=== PATIENT | male | born 1990 | race Caucasian/White ===

== ENCOUNTER 2022-01-24 13:50 | Outpatient (CLI) | payer SELFPAY | END 2022-01-24 13:51 | disposition critical access hospital (66) | LOC: EMS 13:50 | DX: R00.0 Tachycardia, unspecified (principal); R03.0 Elevated blood-pressure reading, without diagnosis of hypertension; F41.9 Anxiety disorder, unspecified | CPT/HCPCS: A0425; A0429 ==

== ENCOUNTER 2022-01-24 14:13 | Emergency (ER) | payer SELFPAY ==
[2022-01-24 14:24] VITALS: BP 192/113
[2022-01-24] MEDS ORDERED: SODIUM CHLORIDE 0.9% 1,000 ML IV STA (14:27)
[2022-01-24] MEDS ORDERED: LORazepam 2 MG/ML VIAL IVP STA (14:27)
[2022-01-24] MEDS ORDERED: METOPROLOL TARTRATE 50 MG TABLET PO STA (14:28)
--- NOTE | 2022-01-24 14:32 | ED Physician Documentation ---
History of Present Illness - Stated complaint Stated Complaint: HEART RACING - Chief complaint Chief Complaint: Cardiac - History obtained from History obtained from: Patient - Additonal information Additional information: The patient comes to the emergency department with chief complaint of heart racing. He states that he drinks fairly heavily every evening and normally, this includes a sixpack of beer plus some other hard alcohol. He states he knows he should stop but he has yet does not want to. He states that normally he does not feel hung over but today he did. He states That he also smoked a lot of weed this morning and drank an energy drink. He drove all the way to [place] and then back when he got back, He felt as though his heart was racing. He called EMS and they found that his blood pressure was high. Patient states he has never been diagnosed with high blood pressure before and that he is pretty healthy, other than the regular heavy alcohol use marijuana use. He denies any chest pain or shortness of breath. He states he felt a little lightheaded. No other complaints at this time. The medics noted that the patient's heart rate ranged between normal and 140s in route. The patient reports currently that he feels much better than he did earlier. Review of Systems Ten Systems: 10 systems reviewed and negative Constitutional: reports: Reviewed and negative Eyes: reports: Reviewed and negative Ears: reports: Reviewed and negative Nose: reports: Reviewed and negative Throat: reports: Reviewed and negative Cardiac: reports: Palpitations Respiratory: reports: Reviewed and negative GI: reports: Reviewed and negative : reports: Reviewed and negative Skin: reports: Reviewed and negative Musculoskeletal: reports: Reviewed and negative Neurologic: reports: Reviewed and negative Psychiatric: reports: Reviewed and negative Endocrine: reports: Reviewed and negative Immunocompromised: reports: Reviewed and negative PD PAST MEDICAL HISTORY - Present Medications Home Medications: Ambulatory Orders Medication Instructions Recorded Confirmed Metoprolol Succinate [Toprol Xl] 25 mg PO DAILY #30 tablet 01/24/22 - Allergies Allergies/Adverse Reactions: Allergies Allergy/AdvReac Type Severity Reaction Status Date / Time No Known Drug Allergies Allergy Verified 01/24/22 14:21 PD ED PE NORMAL - Vitals Vital signs reviewed: Yes - General General: Alert and oriented X 3, No acute distress, Well developed/nourished - HEENT HEENT: Atraumatic, PERRL, EOMI, Moist mucous membranes - Neck Neck: Supple, no meningeal sign, No bony TTP - Cardiac Cardiac: RRR, No murmur, Strong equal pulses - Respiratory Respiratory: No respiratory distress, Clear bilaterally - Abdomen Abdomen: Soft, Non tender, Non distended - Derm Derm: Normal color, Warm and dry, No rash - Extremities Extremities: No deformity, No edema - Neuro Neuro: Alert and oriented X 3, 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, Normal speech - Psych Psych: Normal mood, Normal affect Results - Vitals Vitals: Vital Signs - 24 hr 01/24/22 14:21 Temperature 37.6 C Heart Rate 106 H Respiratory 19 Rate Blood Pressure 192/113 H O2 Saturation 100 Oxygen O2 Source Room air - Labs Labs: Laboratory Tests 01/24/22 01/24/22 14:39 14:39 WBC 9.2 RBC 4.87 Hgb 15.7 Hct 45.3 MCV 93.0 MCH 32.2 H MCHC 34.7 RDW 12.1 Plt Count 228 MPV 10.5 Neut # (Auto) 5.5 Lymph # (Auto) 2.8 [place] # (Auto) 0.6 Eos # (Auto) 0.1 Baso # (Auto) 0.1 Absolute Nucleated RBC 0.00 Nucleated RBC % 0.0 Sodium 140 Potassium 3.8 Chloride 105 Carbon Dioxide 23 Anion Gap 12.0 BUN 16 Creatinine 0.8 Estimated GFR (MDRD) 114 Glucose 116 H Calcium 9.3 Total Bilirubin 0.6 AST 27 ALT 42 Alkaline Phosphatase 63 Total Protein 7.6 Albumin 4.2 Globulin 3.4 Albumin/Globulin Ratio 1.2 Lipase 59 H PD MEDICAL DECISION MAKING - ED course Complexity details: reviewed results, re-evaluated patient, considered differential, d/w patient ED course: The patient's work-up was unremarkable, including EKG and labs. He was treated with IV fluids, Ativan, and metoprolol, with mild improvement in his blood pressure. The patient is not having symptomatic hypertension at this point, but I did advise him that he does need to get his blood pressure under control. I have prescribed metoprolol and advised the patient that he needs to see his primary doctor soon as possible regarding this. The patient also needs to address his substance abuse issues and have advised him to start cutting back with the goal of completely quitting use of both alcohol and marijuana. We discussed the usual indications for return. Departure - Departure Disposition: 01 Home, Self Care Clinical Impression: Palpitations with regular cardiac rhythm Condition: Stable Instructions: ED Hypertension Poss, ED Palpitations, ED Alcohol Abuse Prescriptions: Metoprolol Succinate [Toprol Xl] 25 mg PO DAILY #30 tablet Comments: You had a mildly elevated heart rate here and a significantly elevated blood pressure. You have been provided with a prescription for medication for your blood pressure, but it is very important that you follow-up with your primary doctor to determine whether this is a good long-term plan for you. Please consider decreasing your use of marijuana and alcohol or quitting. Please also continue your weight loss plan. Make the next available appointment with your primary doctor to follow-up on this emergency department visit. Your labs and EKG look good today and there is no evidence of emergent condition at this time.
[2022-01-24 14:45] LABS: BASOPHILS # (AUTO) 0.1 10^3/uL (0.0-0.1); BASOPHILS % (AUTO) 0.7 %; EOSINOPHILS # (AUTO) 0.1 10^3/uL (0.0-0.7); EOSINOPHILS % (AUTO) 1.4 %; HCT - HEMATOCRIT 45.3 % (42.0-52.0); HGB - HEMOGLOBIN 15.7 g/dL (14.0-18.0); LYMPHOCYTES # (AUTO) 2.8 10^3/uL (1.5-3.5); LYMPHOCYTES % (AUTO) 30.7 %; MEAN CORPUSCULAR HEMOGLOBIN 32.2 pg (27.0-31.0); MEAN CORPUSCULAR HGB CONC 34.7 g/dL (32.0-36.0); MEAN PLATELET VOLUME 10.5 fL (7.4-11.4); MONOCYTES # (AUTO) 0.6 10^3/uL (0.0-1.0); MONOCYTES % (AUTO) 6.7 %; NEUTROPHILS # (AUTO) 5.5 10^3/uL (1.5-6.6); NEUTROPHILS % (AUTO) 60.2 %; PLT - PLATELET COUNT 228 10^3/uL (130-450); RED BLOOD COUNT 4.87 10^6/uL (4.70-6.10); RED CELL DISTRIBUTION WIDTH 12.1 % (12.0-15.0); WHITE BLOOD COUNT 9.2 x10^3/uL (4.8-10.8)
[2022-01-24 14:57] LABS: ALBUMIN 4.2 g/dL (3.2-5.5); ALBUMIN/GLOBULIN RATIO 1.2 (1.0-2.2); BILIRUBIN,TOTAL 0.6 mg/dL (0.2-1.0); CALCIUM 9.3 mg/dL (8.5-10.3); CREATININE 0.8 mg/dL (0.6-1.2); POTASSIUM 3.8 mmol/L (3.5-5.0); TOTAL PROTEIN 7.6 g/dL (6.7-8.2)
== END 2022-01-24 15:37 | disposition home or self-care (01) ==
LOC: EDBD → ED 14:13
DX: R00.2 Palpitations (principal); R03.0 Elevated blood-pressure reading, without diagnosis of hypertension
CPT/HCPCS: 36415; 80053; 83690; 85025; 93005; 96374; 99284; A9270; J2060

== ENCOUNTER 2022-02-13 09:49 | Emergency (ER) | payer SELFPAY ==
[2022-02-13] MEDS ORDERED: SODIUM CHLORIDE 0.9% 1,000 ML IV STA (10:11)
[2022-02-13 10:30] LABS: BASOPHILS # (AUTO) 0.1 10^3/uL (0.0-0.1); BASOPHILS % (AUTO) 0.9 %; EOSINOPHILS # (AUTO) 0.2 10^3/uL (0.0-0.7); HCT - HEMATOCRIT 45.6 % (42.0-52.0); HGB - HEMOGLOBIN 15.8 g/dL (14.0-18.0); LYMPHOCYTES # (AUTO) 2.8 10^3/uL (1.5-3.5); MEAN CORPUSCULAR HEMOGLOBIN 32.2 pg (27.0-31.0); MEAN CORPUSCULAR HGB CONC 34.6 g/dL (32.0-36.0); MEAN CORPUSCULAR VOLUME 92.9 fL (80.0-94.0); MEAN PLATELET VOLUME 11.2 fL (7.4-11.4); MONOCYTES # (AUTO) 0.5 10^3/uL (0.0-1.0); MONOCYTES % (AUTO) 5.8 %; NEUTROPHILS # (AUTO) 4.5 10^3/uL (1.5-6.6); NEUTROPHILS % (AUTO) 55.9 %; PLT - PLATELET COUNT 213 10^3/uL (130-450); RED BLOOD COUNT 4.91 10^6/uL (4.70-6.10); RED CELL DISTRIBUTION WIDTH 11.9 % (12.0-15.0); WHITE BLOOD COUNT 8.1 x10^3/uL (4.8-10.8)
--- NOTE | 2022-02-13 10:36 | XRAY Report ---
PROCEDURE: Chest 1 View X-Ray INDICATIONS: tachycardia TECHNIQUE: One view of the chest was acquired. COMPARISON: None FINDINGS: Surgical changes and devices: None. Lungs and pleura: No pleural effusions or pneumothorax. Lungs are clear. Mediastinum: Mediastinal contours appear normal. Heart size is normal. Bones and chest wall: No suspicious bony lesions. Overlying soft tissues appear unremarkable. IMPRESSION: No significant portable chest abnormality is seen. Reviewed by: Chicho Mitchell MD on 02/13/2022 9:34 AM CRISTINA Approved by: Chicho Mitchell MD on 02/13/2022 9:34 AM CRISTINA Station ID: [id number]
--- NOTE | 2022-02-13 10:39 | ED Physician Documentation ---
PD HPI CHEST PAIN - Stated complaint Stated Complaint: CHEST PX - Chief complaint Chief Complaint: Cardiac - History obtained from History obtained from: Patient - Additional information Additional information: Patient is a 32-year-old male presenting for evaluation of feeling his heart racing and slight chest discomfort starting approximately 45 minutes ago as he was smoking marijuana. Patient reports history of similar symptoms a few weeks ago at which time he was seen in the emergency department. He reports after that he did not drink alcohol for several weeks but did resume drinking last ni ght. He was sitting on the couch smoking marijuana when his symptoms started. He was feeling his heart racing, feeling anxious, feeling "fear". He tried to take a cold shower to see if this would help his symptoms but did not make them go completely away. He then asked his friend to bring him to the emergency department. His friend at did project manager/team coach him with breathing exercises which patient states has helped and he feels much better now. He was given a prescription for metoprolol at the previous ED visit but has not filled it nor has he followed up with her primary care doctor. He is post to get insurance through his work after another month.He denies difficulty breathing, current chest pain, abdominal pain, vomiting, leg pain or swelling.He denies other substance use. Review of Systems Constitutional: denies: Fever Nose: denies: Congestion Cardiac: reports: Chest pain / pressure, Palpitations Respiratory: denies: Dyspnea, Cough GI: denies: Abdominal Pain, Vomiting Musculoskeletal: denies: Back pain Neurologic: denies: Headache Psychiatric: reports: Anxiety PD PAST MEDICAL HISTORY - Past Medical History Past Medical History: No - Past Surgical History Past Surgical History: No - Present Medications Home Medications: Ambulatory Orders Medication Instructions Recorded Confirmed Metoprolol Succinate [Toprol Xl] 25 mg PO DAILY #30 tablet 01/24/22 02/13/22 - Allergies Allergies/Adverse Reactions: Allergies Allergy/AdvReac Type Severity Reaction Status Date / Time No Known Drug Allergies Allergy Verified 02/13/22 09:51 - Social History Does the pt smoke?: Yes Smoking Status: Current every day smoker Does the pt drink ETOH?: Yes Does the pt have substance abuse?: Yes - Immunizations Immunizations are current?: Yes - POLST Patient has POLST: No PD ED PE NORMAL - General General: Alert and oriented X 3, No acute distress, Well developed/nourished - HEENT HEENT: Atraumatic, Moist mucous membranes - Neck Neck: Supple, no meningeal sign - Cardiac Cardiac: RRR, No murmur, Strong equal pulses - Respiratory Respiratory: No respiratory distress, Clear bilaterally - Abdomen Abdomen: Normal bowel sounds, Soft, Non tender, Non distended - Derm Derm: Warm and dry - Extremities Extremities: No edema, No calf tenderness / cord - Neuro Neuro: Normal speech Results - Vitals Vitals: Vital Signs - 24 hr 02/13/22 02/13/22 02/13/22 09:51 10:14 12:00 Temperature 36 C L Heart Rate 104 H 93 76 Respiratory 18 17 12 Rate Blood Pressure 150/114 H 149/94 H 127/70 O2 Saturation 100 99 96 Oxygen O2 Source Room air - EKG (time done) 0949 Rate: Rate (enter#) (88) Rhythm: NSR [place]: Normal Ischemia: No: ST elevation c/w ischemia - Labs Labs: Laboratory Tests 02/13/22 02/13/22 02/13/22 10:09 10:09 10:09 WBC 8.1 RBC 4.91 Hgb 15.8 Hct 45.6 MCV 92.9 MCH 32.2 H MCHC 34.6 RDW 11.9 L Plt Count 213 MPV 11.2 Neut # (Auto) 4.5 Lymph # (Auto) 2.8 [place] # (Auto) 0.5 Eos # (Auto) 0.2 Baso # (Auto) 0.1 Absolute Nucleated RBC 0.00 Nucleated RBC % 0.0 Sodium 137 Potassium 3.7 Chloride 103 Carbon Dioxide 23 Anion Gap 11.0 BUN 19 Creatinine 1.0 Estimated GFR (MDRD) 88 L Glucose 130 H Calcium 9.8 Total Bilirubin 0.7 AST 22 ALT 35 Alkaline Phosphatase 65 Troponin I High Sens 3.1 Total Protein 7.7 Albumin 4.5 Globulin 3.2 Albumin/Globulin Ratio 1.4 02/13/22 11:40 WBC RBC Hgb Hct MCV MCH MCHC RDW Plt Count MPV Neut # (Auto) Lymph # (Auto) [place] # (Auto) Eos # (Auto) Baso # (Auto) Absolute Nucleated RBC Nucleated RBC % Sodium Potassium Chloride Carbon Dioxide Anion Gap BUN Creatinine Estimated GFR (MDRD) Glucose Calcium Total Bilirubin AST ALT Alkaline Phosphatase Troponin I High Sens 3.5 Total Protein Albumin Globulin Albumin/Globulin Ratio PD MEDICAL DECISION MAKING - ED course Complexity details: reviewed results, re-evaluated patient, d/w patient ED course: Pt presenting for evaluation Of feeling his heart racing and mild discomfort. Symptoms seem atypical for ACS. Pulmonary embolism seems unlikely as his heart rate has improved without any intervention and lack of other risk factors.EKG demonstrates a sinus rhythm. High-sensitivity troponin is negative x2. Patient feeling better while in the emergency department. He had a similar episode a few weeks ago after heavy alcohol use. Counseled patient on need to refrain from Alcohol or other drug use. Patient was counseled on need for follow-up with primary care doctor and advised on concerning symptoms to return for. 1134 - Patient has been without chest discomfort here but at times reports feeling anxious and noticing on the monitor that his heart rate goes up (ie when talking to girlfriend on the phone). Discussed plan for repeat troponin. Patient is agreeable to p.o. Ativan. Departure - Departure Disposition: 01 Home, Self Care Clinical Impression: Palpitations, Atypical chest pain Condition: Stable Instructions: ED Palpitations Comments: You were evaluated for palpitations And feeling your heart racing. Your EKG shows a normal rhythm and your labs are reassuring. Your chest x-ray is also clear. Your symptoms could be related to a number of causes and I would recommend close follow-up with your primary care doctor. Your initial blood pressure readings were elevated. They have improved but I would still encourage close follow-up with your primary care doctor regarding your blood pressure as well as these feelings of palpitations. I would continue to avoid alcohol or other substance use.Please return to the emergency department with any concerns. Discharge Date/Time: 02/13/22 12:42
[2022-02-13 10:46] LABS: ALBUMIN 4.5 g/dL (3.2-5.5); ALBUMIN/GLOBULIN RATIO 1.4 (1.0-2.2); BILIRUBIN,TOTAL 0.7 mg/dL (0.2-1.0); CALCIUM 9.8 mg/dL (8.5-10.3); POTASSIUM 3.7 mmol/L (3.5-5.0); TOTAL PROTEIN 7.7 g/dL (6.7-8.2)
[2022-02-13] MEDS ORDERED: LORazepam 1 MG TABLET PO STA (11:30)
[2022-02-13 12:17] VITALS: BP 127/70
== END 2022-02-13 12:42 | disposition home or self-care (01) ==
LOC: ED 09:49
DX: R00.2 Palpitations (principal); R07.89 Other chest pain; F41.9 Anxiety disorder, unspecified; R03.0 Elevated blood-pressure reading, without diagnosis of hypertension; F17.200 Nicotine dependence, unspecified, uncomplicated
CPT/HCPCS: 36415; 71045; 80053; 84484; 85025; 93005; 99284; J8499

== ENCOUNTER 2023-08-17 08:30 | Outpatient (CLI) | payer BC | END 2023-08-17 08:31 | disposition home or self-care (01) | LOC: SC 08:30 | PROVIDERS: ATTEND Internal Medicine Pulmonary Disease | DX: G47.33 Obstructive sleep apnea (adult) (pediatric) (principal); R09.02 Hypoxemia; E66.01 Morbid (severe) obesity due to excess calories; Z68.42 Body mass index [BMI] 45.0-49.9, adult | CPT/HCPCS: 95806 ==

== ENCOUNTER 2023-08-22 10:17 | Outpatient (CLI) | payer BC ==
--- NOTE | 2023-08-22 12:28 | SLEEP CARE CONSULTATION ---
Information from patient questionnaire entered by Anali Gama. I have reviewed and concur with the information entered by nAali Gama. This document represents the service I personally performed and the decisions made by me, Juarez Tiwari MD, [facility]. History of Present Illness Service Date and Time: 08/22/2023 1017 Initial [place] Sleepiness Scale score: 7 (07/11/23) Current [place] Sleepiness Scale score: 7 (08/22/23) Additional HPI information: Mr. Aaron returned for follow up of the sleep study he had on 08-17-23. The polysomnography showed that moderate obstructive sleep apnea-hypopnea, with an AHI of 29.6/hr and meaghan SaO2 of 78%. During the study, the patient had 22 apneas (22 obstructive, 0 central, 0 mixed) and 168 hypopneas. The longest episode lasted 78.0 seconds. The respiratory events occurred independently of sleep stage and body position (supine AHI was 28.1 and non-supine, 30.75). Hypoxemia was moderate, with the lowest oxygen saturation of 78 % and 63.8 minutes with SaO2 under 90%. Baseline oxygen saturation was normal (Average oxygen saturation was 92%). The patient was informed of these findings. I explained to him the pathophysiology behind obstructive sleep apnea. We then spent quite a bit of time discussing different treatment options. For mild obstructive sleep apnea, surgery and oral appliance are alternatives to nasal CPAP therapy but in moderate or severe cases, nasal CPAP is the most effective and reliable treatment. Weight loss in an obese individual is strongly recommended. After some discussion, he opted to go with the nasal CPAP therapy. I explained to him how CPAP machine works and what to expect when using the machine. He is encouraged to use CPAP every night especially in the first 2 to 3 nights in order to get used to it. He should call his CPAP supplier or me to discuss any mechanical problem that may occur. If he snores or feels like he is not getting enough air from the machine, he should notify me and I will increase the pressure. Sleep Study - Results Type of Sleep Study: Home sleep study (COMPLETED 08/17/23) Prior sleep studies: No Allergies and Home Medications Drug allergies reviewed: Yes Home medication list reviewed: Yes Allergy and home medication list: Allergies No Known Drug Allergies Allergy (Verified 07/11/23 09:44) Review of Systems Review of systems same as previous: Yes (NO CHANGE) Physical Exam Vital signs obtained and entered by: ANALI Slaughter MA Blood Pressure: 174/107 (LEFT ARM) Cuff size: long Heart Rate: 101 O2 Saturation: 100 Height: 6 ft Weight: 365 lb 3.2 oz Body Mass Index: 49.5 BMI Classification: Morbidly Obese Impression and Plan IMPRESSION: 1. Obstructive Sleep Apnea-Hypopnea Syndrome, moderate, associated with moderate hypoxemia. Most likely, this is the cause of the patients symptoms of unrefreshed sleep, and excessive daytime sleepiness. As mentioned above, the patient will be started on an autoCPAP set between 5 and 15 cmH2O. Depending on his response and compliance he may be brought back for an overnight CPAP titration study. PLAN: 1. Prescription made for an autoCPAP, heated humidifier, and related supplies through [facility]. 2. Attempt to lose weight and avoid alcohol consumption near bedtime. 3. The patient is again cautioned about driving until his sleepiness completely resolves on the CPAP therapy. 4. Return for follow up after one month of using the CPAP. Counseling Topics: Weight control Prescriptions: Auto CPAP Follow up with Sleep Care in: 1-2 months Follow up recommended for: Weight management Visit Type: In Office Time Spent with Patient (minutes): 15 Provider Statement: I spent 100% of the Face to Face Visit with the patient with greater than 50% spent counseling the patient and coordination of care.
[2023-08-22 12:30] VITALS: BP 174/107; O2SAT 100
== END 2023-08-22 10:18 | disposition home or self-care (01) ==
LOC: SC 10:17
PROVIDERS: ATTEND Internal Medicine Pulmonary Disease
DX: G47.33 Obstructive sleep apnea (adult) (pediatric) (principal); E66.01 Morbid (severe) obesity due to excess calories; Z68.42 Body mass index [BMI] 45.0-49.9, adult
CPT/HCPCS: 99212